=== PATIENT | female | born 1985 | race American Indian/Alaskan Native ===

== ENCOUNTER 2018-01-23 15:14 | Emergency (ER) | payer SELFPAY ==
[2018-01-23 15:18] VITALS: O2SAT 100; BMI 20.5
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
[2018-01-23 17:02] LABS: SQUAMOUS EPITHIAL 2 /hpf (0-5); URINE BACTERIA RARE (<OCC); URINE BILIRUBIN NEGATIVE (NEGATIVE); URINE BLOOD NEGATIVE (NEGATIVE); URINE CALCIUM OXALATE CRYSTALS RARE /hpf (<OCC); URINE CLARITY Hazy (Clear); URINE COLOR Yellow (YELLOW); URINE GLUCOSE (UA) NORMAL (Normal); URINE LEUKOCYTE ESTERASE NEG Leu/uL (Negative); URINE PROTEIN NEGATIVE (NEGATIVE)
[2018-01-23 17:45] VITALS: BP 112/70; PULSE 88; RESP 18; TEMP 98
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
== END 2018-01-23 18:50 | disposition home or self-care (01) ==
LOC: C.ER 15:14
DX: M25.552 Pain in left hip (principal); Z59.0 Homelessness